=== PATIENT | male | born 1970 | race Caucasian/White ===

== ENCOUNTER 2019-04-24 17:33 | Emergency (ER) | payer SELFPAY ==
[~2019-04-24] VITALS: Ht 180.3 cm; Wt 72.6 kg
[~2019-04-24 17:33] MED LIST: ASPIRIN81 M1 PO; ATIVAN0.5 MG PO; HYDROCHLOROTHIA25 MG PO; KEFLEX500 MG PO; LIDEX 0.05% CRE15 GM T; LISINOPRIL/HCTZ1 TA2 PO; LISINOPRIL20 MG PO; METOPROLOL25 MG PO
[2019-04-24 18:41] LABS: BASO # 0.1 10*3/uL (0.0-0.1); BASO % 0.6 % (0.0-1.0); EOS # 0.1 10*3/uL (0.0-0.4); EOS % 0.7 % (1.0-4.0); HEMATOCRIT 47.4 % (42.0-52.0); HEMOGLOBIN 16.3 g/dl (14.0-18.0); LYMPH % 37.1 % (27.0-41.0); MEAN CELL VOLUME 96.3 fl (80.0-94.0); MEAN CORPUSCULAR HGB 33.1 pg (27.0-31.0); MEAN CORPUSCULAR HGB CONC 34.4 g/dl (33.0-37.0); MEAN PLATELET VOLUME 8.4 fl (9.6-12.3); MONO # 0.6 10*3/uL (0.1-1.0); MONO % 7.4 % (3.0-9.0); NEUT # 4.4 10*3/uL (2.3-7.9); NEUT % 54.1 % (47.0-73.0); PLATELET COUNT AUTOMATED 306 10*3/uL (130-400); RED BLOOD COUNT 4.92 10*6/uL (4.50-5.90); RED CELL DISTRI WIDTH 13.1 % (0-14.5); WHITE BLOOD COUNT 8.2 10*3/uL (4.8-10.8)
[2019-04-24 19:13] LABS: ALBUMIN 4.3 gm/dl (3.1-4.5); ALKALINE PHOSPHATASE 75 U/L (45-117); BUN 6 mg/dl (7-24); CHLORIDE 103 mmol/L (98-107); CREATININE 0.85 mg/dL (0.70-1.30); SGOT/AST 69 IU/L (3-35); SGPT/ALT 48 U/L (12-78); SODIUM 136 mmol/L (136-145); TOTAL PROTEIN 8.4 gm/dL (6.4-8.2)
== END 2019-04-24 20:05 | disposition left against medical advice (07) ==
LOC: ED 17:33
PROVIDERS: Internal Medicine
DX: F10.929 Alcohol use, unspecified with intoxication, unspecified (principal); F17.200 Nicotine dependence, unspecified, uncomplicated; Z79.899 Other long term (current) drug therapy; Z79.82 Long term (current) use of aspirin; Y90.9 Presence of alcohol in blood, level not specified

== ENCOUNTER 2019-04-25 09:38 | Inpatient (IN) | payer BC ==
[~2019-04-25] VITALS: Ht 177.8 cm; Wt 72.3 kg
--- NOTE | ~2019-04-25 | EKG ---
[place], [place] ELECTROCARDIOGRAM REPORT NAME: JIMMIE SOTOMAYOR UNIT #: [id number] ROOM: 529 DOCTOR: THA DRAFT REPORT BIRTHDATE: [birth year] [facility] Test Date: 2019-04-25 Test Time: 13:45:46 Pat Name: JIMMIE SOTOMAYOR Department: Room: 529 1 Gender: M Staff Home Therapy Rn: : [id number] Requested By: SAM GARCIA Order Number: [id number] Reading MD: Yesenia Miranda MD Measurements Intervals [place] Rate: 117 P: 53 NE: 160 QRS: 40 QRSD: 79 T: 44 QT: 315 QTc: 440 Interpretive Statements Sinus tachycardia ST elev, probable normal early repol pattern Artifact in lead(s) II,III,aVF No previous ECG available for comparison Electronically Signed On 04-26-2019 17:28:52 PDT by Yesenia Miranda MD CM:EKGRPT:ELECTROCARDIOGRAM REPORT [id number] SAM GARCIA EPIPHANY DRAFT REPORT SAM GARCIA
[2019-04-25 10:00] VITALS: BP 163/99
--- NOTE | 2019-04-25 10:00 | NUR ---
A 48, admitted to 5E, under the services of DEVON Caraballo DO with a diagnosis of ALCOHOL WITHDRAWL. Chief complaint is SEARCHING DETOX. Patient arrived via ambulatory from [place]. Monitor applied. Initial assessment completed. Vital signs taken and recorded. DEVON CARABALLO DO notified of admission to the unit. Orders received. See assessment for past medical history, medications and allergies. Patient and/or family oriented to unit. [address] visitation policy reviewed. Clothing/patient valuable form completed. SAGE SAINI
--- NOTE | 2019-04-25 10:59 | NUR ---
PATIENT MEETS [facility], CIWA=15. PATIENT IS WANTING OUTPATIENT TREATMENT. [place] STAFF WILL FOLLOW UP PATIENT WITH REFERRAL OPTIONS. EDDIE ALEX B.A. AGRICULTURAL CROP FARM MANAGER
[2019-04-25 11:41] LABS: BASO # 0.1 10*3/uL (0.0-0.1); BASO % 0.8 % (0.0-1.0); EOS % 0.2 % (1.0-4.0); HEMATOCRIT 49.5 % (42.0-52.0); HEMOGLOBIN 16.9 g/dl (14.0-18.0); LYMPH # 2.7 10*3/uL (1.3-4.4); LYMPH % 22.2 % (27.0-41.0); MEAN CELL VOLUME 98.6 fl (80.0-94.0); MEAN CORPUSCULAR HGB 33.7 pg (27.0-31.0); MEAN CORPUSCULAR HGB CONC 34.1 g/dl (33.0-37.0); MEAN PLATELET VOLUME 8.6 fl (9.6-12.3); MONO # 1.4 10*3/uL (0.1-1.0); MONO % 11.4 % (3.0-9.0); NEUT # 7.9 10*3/uL (2.3-7.9); NEUT % 64.9 % (47.0-73.0); PLATELET COUNT AUTOMATED 336 10*3/uL (130-400); RED BLOOD COUNT 5.02 10*6/uL (4.50-5.90); RED CELL DISTRI WIDTH 13.2 % (0-14.5); WHITE BLOOD COUNT 12.1 10*3/uL (4.8-10.8)
[2019-04-25 11:49] LABS: INTERNATIONAL NORM RATIO 0.9 (2.0-3.5)
[2019-04-25 11:51] LABS: ALBUMIN 4.7 gm/dl (3.1-4.5); ALKALINE PHOSPHATASE 81 U/L (45-117); BUN 7 mg/dl (7-24); CHLORIDE 102 mmol/L (98-107); CREATININE 0.94 mg/dL (0.70-1.30); LIPASE 145 U/L (73-393); SGOT/AST 62 IU/L (3-35); SGPT/ALT 54 U/L (12-78); SODIUM 137 mmol/L (136-145); TOTAL PROTEIN 9.3 gm/dL (6.4-8.2)
[2019-04-25 11:55] LABS: ETHYL ALCOHOL < 3.0 mg/dl (<3)
[2019-04-25 12:00] VITALS: BP 147/102
--- NOTE | 2019-04-25 12:12 | NUR ---
MEDICATED WITH PO MOTRIN, VISTARIL, IMODIUM AND IV ATIVAN ORDERED PER PT REQUEST FOR C/O BODY ACHES, ANXIETY, DIARRHEA AND TREMORS.
--- NOTE | 2019-04-25 13:00 | NUR ---
Patient resting. Responding to scheduled medications with fewer complaints of pain and anxiety.
[2019-04-25 16:00] VITALS: BP 130/86
--- NOTE | 2019-04-25 18:42 | NUR ---
MEDICATED WITH PO VISTARIL, IV ATIVAN AND PO IMODIUM ORDERED PER PT REQUEST FOR C/O ANXIETY, TREMORS AND DIARRHEA.
--- NOTE | 2019-04-25 19:45 | NUR ---
Patient resting. Responding to scheduled medications with fewer complaints of pain and anxiety.
[2019-04-25 20:00] VITALS: BP 145/87
--- NOTE | 2019-04-25 20:50 | NUR ---
PATIENT RESTING ON LT SIDE, RESPIRATIONS EASY AND REGULAR ON ROOM AIR, NO S/S DISTRESS. HR 90'S PER MONTIOR. UNBOTHERED AT THIS TIME. WILL CONT TO MONITOR. CALL LIGHT IN REACH.
--- NOTE | 2019-04-25 23:30 | NUR ---
PATIENT AWOKEN FOR MEDS AND ASSESSMENT. CALM AND COOPERATIVE. HRR 80'S, REGULAR RESPIRATIONS ON ROOM AIR, NO S/S DISCOMFORT/DISTRESS, VERBALIZES NO COMPLAINTS, NO S/S DT'S. MEDICATED PER ORDERS WITH LIBRIUM. PRN ATIVAN, VISTRAIL, MOTRIN, IMMODIUM AND TRAZODONE GIVEN. BED IN LOW, LOCKED POS, CALL LIGHT IN REACH. WILL CONT TO MONITOR.
[2019-04-26] VITALS: BP 125/84
--- NOTE | 2019-04-26 04:13 | NUR ---
PT SLEEPING. NO SS DISTRESS.
[2019-04-26 08:00] VITALS: BP 130/80
--- NOTE | 2019-04-26 08:15 | NUR ---
Patient resting. Responding to scheduled medications with fewer complaints of pain and anxiety.
[2019-04-26 08:32] LABS: URINE AMPHETAMINES < 1000 (1000ng/ml); URINE BARBITURATES < 200 (200ng/ml); URINE BENZODIAZEPINES < 200 (200ng/ml); URINE CANNABINOIDS (THC) < 50 (50ng/ml); URINE COCAINE < 300 (300ng/ml); URINE METHADONE < 300 (300ng/ml); URINE OPIATES < 300 (300ng/ml)
[2019-04-26 08:33] LABS: URINE PHENCYCLIDINE < 25 (25ng/ml)
[2019-04-26 10:19] LABS: BILIRUBIN 1+ (NEGATIVE); BLOOD NEGATIVE (NEGATIVE); CLARITY SL CLOUDY (CLEAR); COLOR YELLOW (YELLOW); GLUCOSE NEGATIVE (NEGATIVE); KETONE NEGATIVE (NEGATIVE); LEUKO ESTERASE NEGATIVE (NEGATIVE); NITRITE NEGATIVE (NEGATIVE)
[2019-04-26 10:39] LABS: BACTERIA TRACE; MUCOUS 1+
[2019-04-26 12:00] VITALS: BP 132/81
--- NOTE | 2019-04-26 12:19 | NUR ---
MEDICATED WITH PO MOTRIN, VISTARIL AND IV ATIVAN ORDERED PER PT REQUEST FOR C/O BODY ACHES, ANXIETY AND NOTED TREMORS.
--- NOTE | 2019-04-26 13:59 | NUR ---
SPOKE TO PATIENT ABOUT REFERRAL OPTIONS FOR HIS AFTERCARE PLAN. PATIENT STATED THAT HE IS NOT INTERESTED IN RESIDENTIAL TREATMENT AT THIS TIME DUE TO WORK. PATIENT IS WILLING TO GO TO [facility] AND REQUESTED A LIST IN HIS LOCAL AREA. MD STAFF WILL FOLLOW UP WITH PATIENT WITH OTHER REFERRAL OPTIONS. EDDIE ALEX B.A. EQUIPMENT MECHANIC
[2019-04-26 16:00] VITALS: BP 136/75
--- NOTE | 2019-04-26 17:10 | NUR ---
MEDICATED WITH IV ATIVAN ORDERED PER PT REQUEST FOR NOTED AGITATION. DR BOURGEOIS AWARE.
--- NOTE | 2019-04-26 18:24 | NUR ---
MEDICATED WITH TOPICAL NICOTINE PATCH ORDERED FOR THE DESIRE TO SMOKE.
--- NOTE | 2019-04-26 18:28 | NUR ---
Patient resting. Responding to scheduled medications with fewer complaints of pain and anxiety.
[2019-04-26 20:00] VITALS: BP 134/70
--- NOTE | 2019-04-26 20:49 | NUR ---
PT. VERY ANXIOUS; MEDICATED WITH VISTARIL FOR ANXIETY & TRAZODONE FOR INSOMNIA. INFORMED PATIENT THAT HIS NURSE OR I WOULD BE BACK TO MEDICATED HIM SHORTLY. PT. VOICES NO OTHER C/O AT THIS TIME. CALL LIGHT WITHIN REACH.
--- NOTE | 2019-04-26 21:25 | NUR ---
PATIENT MEDICATED WITH IV ATIVAN 2MG FOR ANXIETY AND SHAKING ALONG WITH HIS SCHEDULED LIBRIUM. STATED HE FEELS OKAY. RESPIRATIONS REGULAR AND NON-LABORED. DENIES COMPLAINTS OF PAIN OR DISCOMFORT. VITAL SIGNS STABLE. SAID HE DIDN'T SLEEP VERY WELL LAST NIGHT AND HOPES HE SLEEPS GOOD TONIGHT. WILL CONTINUE TO MONITOR. CALL LIGHT IN REACH.
[2019-04-27] VITALS: BP 129/73
--- NOTE | 2019-04-27 01:33 | NUR ---
PATIENT MEDICATED WITH ATIVAN FOR SIGNS OF ANXIETY. RESTING IN BED WITH EYES OPEN AT THIS TIME. NO SIGNS OR SYMPTOMS OF DISTRESS NOTED. WILL CONTINUE TO MONITOR. CALL LIGHT IN REACH.
--- NOTE | 2019-04-27 05:37 | NUR ---
PATIENT MEDICATED WITH ATIVAN 2MG IV FOR ANXIETY. STATED HE SLEPT PRETTY GOOD AFTER MIDNIGHT. WILL CONTINUE TO MONITOR. CALL LIGHT IN REACH.
--- NOTE | 2019-04-27 14:15 | NUR ---
[facility] Discharge instructions reviewed with patient/family. Patient receptive and verbalizes understanding. Follow-up care arranged. Written instructions given to patient/family. CHRISTOPHER FUENTES
--- NOTE | 2019-04-27 15:21 | NUR ---
SPOKE TO PATIENT AND PROVIDED PATIENT WITH REFERRAL OPTIONS FOR HIS AFTERCARE PLAN. EDDIE ALEX B.A. STAMPING PRESS OPERATOR
== END 2019-04-27 14:30 | disposition home or self-care (01) | DRG 897 ==
LOC: 5E 09:38
PROVIDERS: Registered Nurse; ADMIT Internal Medicine
DX: F10.230 Alcohol dependence with withdrawal, uncomplicated (principal); R00.0 Tachycardia, unspecified; I10 Essential (primary) hypertension; R74.0 Nonspecific elevation of levels of transaminase and lactic acid dehydrogenase [LDH]; Z53.29 Procedure and treatment not carried out because of patient's decision for other reasons; E80.6 Other disorders of bilirubin metabolism; D75.89 Other specified diseases of blood and blood-forming organs; Z87.891 Personal history of nicotine dependence; Z82.49 Family history of ischemic heart disease and other diseases of the circulatory system; Z79.82 Long term (current) use of aspirin; Z79.899 Other long term (current) drug therapy

== ENCOUNTER 2022-01-08 19:49 | Inpatient (IN) | payer SELFPAY ==
[~2022-01-08] VITALS: Ht 177.8 cm; Wt 67.7 kg
[2022-01-08 20:12] VITALS: BP 152/118
[2022-01-08 20:52] VITALS: BP 148/111
[2022-01-08 21:43] LABS: BASO # 0.1 10*3/uL (0.0-0.1); EOS % 0.5 % (1.0-4.0); HEMATOCRIT 44.6 % (42.0-52.0); LYMPH # 2.9 10*3/uL (1.3-4.4); LYMPH % 37.9 % (27.0-41.0); MEAN CELL VOLUME 92.9 fl (80.0-94.0); MEAN CORPUSCULAR HGB 32.9 pg (27.0-31.0); MEAN CORPUSCULAR HGB CONC 35.4 g/dl (33.0-37.0); MEAN PLATELET VOLUME 8.6 fl (9.6-12.3); MONO # 0.5 10*3/uL (0.1-1.0); MONO % 6.3 % (3.0-9.0); NEUT # 4.1 10*3/uL (2.3-7.9); PLATELET COUNT AUTOMATED 237 10*3/uL (130-400); RED CELL DISTRI WIDTH 12.3 % (0-14.5); WHITE BLOOD COUNT 7.7 10*3/uL (4.8-10.8)
[2022-01-08 21:51] VITALS: BP 163/112
[2022-01-08 22:02] LABS: BILIRUBIN Negative (Negative); BLOOD Negative (Negative); CLARITY Clear (Clear); COLOR Yellow (Yellow); GLUCOSE Negative (Negative); KETONE Trace (Negative); LEUKO ESTERASE Negative (Negative); NITRITE Negative (Negative); SPECIFIC GRAVITY <= 1.005 (1.001-1.030); UROBILINOGEN 0.2 E.U./dl (0.0-1.0)
[2022-01-08 22:07] LABS: ALKALINE PHOSPHATASE 84 U/L (45-117); BUN 4 mg/dl (7-24); CHLORIDE 96 mmol/L (98-107); SGOT/AST 114 IU/L (3-35); SGPT/ALT 113 U/L (12-78); SODIUM 131 mmol/L (136-145); TOTAL PROTEIN 8.1 gm/dL (6.4-8.2)
[2022-01-08 22:11] LABS: MUCOUS 1+; WBC 0-2 wbc/hpf (0-5)
[2022-01-08 22:14] LABS: URINE AMPHETAMINES < 1000 (1000ng/ml); URINE BARBITURATES < 200 (200ng/ml); URINE BENZODIAZEPINES < 200 (200ng/ml); URINE CANNABINOIDS (THC) < 50 (50ng/ml); URINE COCAINE < 300 (300ng/ml); URINE METHADONE < 300 (300ng/ml); URINE OPIATES < 300 (300ng/ml)
[2022-01-08 22:15] LABS: URINE PHENCYCLIDINE < 25 (25ng/ml)
[2022-01-08 22:43] LABS: ACETAMINOPHEN (TYLENOL) < 5.0 ug/ml (10-30)
[2022-01-08 22:54] VITALS: BP 153/84
[2022-01-09] VITALS (7 sets, daily range): BP systolic 127–152; BP diastolic 82–104
[2022-01-09 11:19] LABS: BASO # 0.1 10*3/uL (0.0-0.1); BASO % 1.2 % (0.0-1.0); EOS % 0.7 % (1.0-4.0); LYMPH # 2.1 10*3/uL (1.3-4.4); LYMPH % 35.1 % (27.0-41.0); MEAN CELL VOLUME 95.8 fl (80.0-94.0); MEAN CORPUSCULAR HGB 33.1 pg (27.0-31.0); MEAN CORPUSCULAR HGB CONC 34.6 g/dl (33.0-37.0); MEAN PLATELET VOLUME 8.9 fl (9.6-12.3); MONO # 0.7 10*3/uL (0.1-1.0); MONO % 12.4 % (3.0-9.0); NEUT % 50.4 % (47.0-73.0); PLATELET COUNT AUTOMATED 227 10*3/uL (130-400); RED CELL DISTRI WIDTH 12.6 % (0-14.5); WHITE BLOOD COUNT 5.9 10*3/uL (4.8-10.8)
[2022-01-09 11:28] LABS: INTERNATIONAL NORM RATIO 0.9 (2.0-3.5)
[2022-01-09 11:38] LABS: ALKALINE PHOSPHATASE 84 U/L (45-117); BUN 7 mg/dl (7-24); CHLORIDE 104 mmol/L (98-107); CREATININE 0.82 mg/dL (0.70-1.30); SGOT/AST 129 IU/L (3-35); SGPT/ALT 115 U/L (12-78); SODIUM 136 mmol/L (136-145); TOTAL PROTEIN 8.2 gm/dL (6.4-8.2)
[2022-01-10] VITALS: BP 155/100
[2022-01-10 08:00] VITALS: BP 152/104
[2022-01-10 12:00] VITALS: BP 156/107
[2022-01-10 16:00] VITALS: BP 152/103
[2022-01-10 20:00] VITALS: BP 151/95
[2022-01-11] VITALS: BP 153/88
[2022-01-11 06:25] LABS: ALKALINE PHOSPHATASE 67 U/L (45-117); BASO # 0.1 10*3/uL (0.0-0.1); BUN 7 mg/dl (7-24); CHLORIDE 112 mmol/L (98-107); CREATININE 0.76 mg/dL (0.70-1.30); EOS # 0.2 10*3/uL (0.0-0.4); HEMATOCRIT 40.7 % (42.0-52.0); LYMPH # 2.6 10*3/uL (1.3-4.4); LYMPH % 33.3 % (27.0-41.0); MEAN CORPUSCULAR HGB 34.1 pg (27.0-31.0); MEAN CORPUSCULAR HGB CONC 34.4 g/dl (33.0-37.0); MEAN PLATELET VOLUME 10.2 fl (9.6-12.3); MONO # 0.6 10*3/uL (0.1-1.0); MONO % 8.1 % (3.0-9.0); NEUT # 4.2 10*3/uL (2.3-7.9); NEUT % 55.3 % (47.0-73.0); PLATELET COUNT AUTOMATED 161 10*3/uL (130-400); POTASSIUM 3.6 mmol/L (3.5-5.1); RED BLOOD COUNT 4.11 10*6/uL (4.50-5.90); RED CELL DISTRI WIDTH 12.7 % (0-14.5); SGOT/AST 91 IU/L (3-35); SGPT/ALT 98 U/L (12-78); SODIUM 143 mmol/L (136-145); WHITE BLOOD COUNT 7.7 10*3/uL (4.8-10.8)
[2022-01-11 08:00] VITALS: BP 136/97
[2022-01-11 12:00] VITALS: BP 132/82
[2022-01-11 16:00] VITALS: BP 149/92
[2022-01-11 20:00] VITALS: BP 151/108
[2022-01-12] VITALS: BP 163/105
[2022-01-12 08:00] VITALS: BP 138/88
[2022-01-12] MEDS ORDERED: LISINOPRIL20 MG PO (11:10)
[2022-01-12] MEDS ORDERED: COLACE100 MG PO (11:11)
== END 2022-01-12 09:36 | disposition home or self-care (01) | DRG 897 ==
LOC: ED 19:49 → 5E 01-09 09:44 → EDHOLD 01-09 09:44 → 5E 01-09 10:33
PROVIDERS: Family Medicine; Internal Medicine; ADMIT Internal Medicine; ATTEND Internal Medicine
DX: F10.239 Alcohol dependence with withdrawal, unspecified (principal); R65.10 Systemic inflammatory response syndrome (SIRS) of non-infectious origin without acute organ dysfunction; F10.280 Alcohol dependence with alcohol-induced anxiety disorder; R74.01 Elevation of levels of liver transaminase levels; F17.210 Nicotine dependence, cigarettes, uncomplicated; I10 Essential (primary) hypertension; Z82.49 Family history of ischemic heart disease and other diseases of the circulatory system; Z78.9 Other specified health status